=== PATIENT | male | born 1960 | race Caucasian/White ===

== ENCOUNTER 2016-08-01 09:53 | Emergency (ER) | payer BC ==
--- NOTE | 2016-08-01 10:18 | UC ---
Throat Pain/Nasal Peter HPI - HPI Summary HPI Summary: Pt presents with c/o sore throat that began on 07/29 and has worsened since onset. Pt also reports that he thinks that hi uvula has elongated and is non tender. Pt denies getting flu vaccine and reports that "he never gets the flu" . - History of Current Complaint Chief Complaint: UCGeneralIllness Stated Complaint: THROAT Time Seen by Provider: 08/01/16 10:15 Hx Obtained From: Patient Onset/Duration: Sudden Onset, Lasting Days - 3 days Severity: Mild Cough: Nonproductive Associated Signs & Symptoms: Positive: Dysphagia, Other - elongated uvula - Epiglottits Risk Factors Epiglottis Risk Factors: Negative - Allergies/Home Medications Allergies/Adverse Reactions: Allergies Allergy/AdvReac Type Severity Reaction Status Date / Time No Known Allergies Allergy Verified 08/01/16 09:58 Home Medications: Home Medications Losartan Potassium 25 mg PO DAILY 08/01/16 [History Confirmed 08/01/16] Venlafaxine EXT RELEASE CAP* [Effexor Xr CAP*] 225 mg PO DAILY 08/01/16 [ History Confirmed 08/01/16] PMH/Surg Hx/FS Hx/Imm Hx - Additional Past Medical History Additional PMH: Pt has HTN and took his Anti hypertensive ~ 20 minutes prior to arrival to clinic. Previously Healthy: Yes Cardiovascular History Of: Reports: Hypertension - Surgical History Surgical History: Yes Surgery Procedure, Year, and Place: prostate surgery 03/2014 - Family History Known Family History: Positive: Cardiac Disease - Social History Lives: With Family Alcohol Use: None Substance Use Type: None Smoking Status (MU): Never Smoked Tobacco Review of Systems Constitutional: Other - felt "warm" last night Skin: Negative Eyes: Negative ENT: Sore Throat, Other - elongated uvula Respiratory: Negative Cardiovascular: Negative Gastrointestinal: Negative Genitourinary: Negative Motor: Negative Neurovascular: Negative Musculoskeletal: Negative Neurological: Negative Psychological: Negative All Other Systems Reviewed And Are Negative: Yes Physical Exam Triage Information Reviewed: Yes Appearance: Well-Appearing Vital Signs: Initial Vital Signs Temp 97.7 F 08/01/16 09:59 Pulse 94 08/01/16 09:59 Resp 16 08/01/16 09:59 BP 154/99 08/01/16 09:59 Pulse Ox 96 08/01/16 09:59 Vital Signs Reviewed: Yes Eye Exam: Normal ENT: Positive: Pharynx normal, Other: - uvula, length, ~ 1- 2 cm, non erythematous, no edema, no abscess Neck exam: Normal Respiratory Exam: Normal Cardiovascular Exam: Normal Musculoskeletal Exam: Normal Neurological Exam: Normal Psychological Exam: Normal Skin Exam: Normal Throat Pain/Nasal Course/Dx - Course Course Of Treatment: I discussed with the pt the results of the rapid strep test being negative and the need to monitor his c/o regarding his uvula. Pt verbalized understanding and agreed to plan of care. Additonally, I spoke to the pt about his elevated BP at today's visit. Pt revealed that he had only taken his hypertensive medication 20 minutes frior to arrival and that he visits his PCP on a regular basis. - Differential Dx/Diagnosis Differential Diagnosis/HQI/PQRI: Influenza, Pharyngitis, Other Provider Diagnoses: sore throat. uvulitis. Elevated BP- with history of HTN on medication Discharge - Discharge Plan Condition: Stable Disposition: HOME Prescriptions: predniSONE TAB* [Deltasone TAB*] 30 mg PO DAILY #12 tab Patient Education Materials: Pharyngitis (ED), Uvulitis (ED) Referrals: [facility] [place] [facility]FERRAL [Outside] Additional Instructions: Please follow up with your PCP or return to clinic as needed. To help with your complaint of sore throat you should use Acetominophen and keep well hydrated with cold beverages. Additionally, it was noted that your blood pressure wal elevated at today's visit. Please follow up with your PCP regarding this as soon as possible and take your Blood pressure medication as directed.
[2016-08-01 11:03] VITALS: BP 146/92
== END 2016-08-01 11:03 | disposition home or self-care (01) ==
LOC: UCCORT 09:53
DX: K12.2 Cellulitis and abscess of mouth (principal); I10 Essential (primary) hypertension
CPT/HCPCS: 87651; 99202; G0463

== ENCOUNTER 2018-10-05 10:02 | Emergency (ER) | payer BC ==
[2018-10-05 10:24] VITALS: BP 160/98
--- NOTE | 2018-10-05 10:46 | ED ---
Throat Pain/Nasal Congestion - HPI Summary HPI Summary: 57 yr old male with the complaint of sinus pain, pressure post nasal drip, green sinus drainage from his nose. Onset over the past week. He denies fever or chills. He recently completed prednisone and antiviral regimen for left sided nj palsey. Symptoms of his sinus complaint are moderate in intensity. - History of Current Complaint Chief Complaint: UCGeneralIllness Time Seen by Provider: 10/05/18 10:30 - Allergies/Home Medications Allergies/Adverse Reactions: Allergies Allergy/AdvReac Type Severity Reaction Status Date / Time No Known Allergies Allergy Verified 10/05/18 10:25 PMH/Surg Hx/FS Hx/Imm Hx Cardiovascular History: Reports: Hx Hypertension - Cancer History Cancer Type, Location and Year: prostate cancer 2013 - Surgical History Surgery Procedure, Year, and Place: prostate surgery 03/2014 Infectious Disease History: No Infectious Disease History: Denies: Traveled Outside the [place] in Last 30 Days - Family History Known Family History: Positive: Cardiac Disease - Social History Alcohol Use: Rare Substance Use Type: Reports: None Smoking Status (MU): Never Smoked Tobacco Review of Systems Constitutional: Negative Positive: Nasal Discharge All Other Systems Reviewed And Are Negative: Yes Physical Exam Triage Information Reviewed: Yes Vital Signs On Initial Exam: Initial Vitals Temp Pulse Resp BP Pulse Ox 98.5 F 97 16 160/98 98 10/05/18 10:18 10/05/18 10:18 10/05/18 10:18 10/05/18 10:18 10/05/18 10:18 Vital Signs Reviewed: Yes Appearance: Positive: Well-Appearing, No Pain Distress Skin: Positive: Warm, Skin Color Reflects Adequate Perfusion Head/Face: Positive: Normal Head/Face Inspection Eyes: Positive: EOMI, FABRICIO ENT: Positive: Pharynx normal, Nasal congestion, TMs normal, Sinus tenderness - maxilla bilateral Neck: Positive: Nontender Respiratory/Lung Sounds: Positive: Clear to Auscultation, Breath Sounds Present Cardiovascular: Positive: RRR. Negative: Murmur Abdomen Description: Negative: Distended Neurological: Positive: Alert, Oriented to Person Place, Time, Normal Gait, Speech Normal. Negative: CN Intact II-III - left sided bells palsey weakness of nerve 7 all three branches on the left. Psychiatric: Positive: Normal Diagnostics - Vital Signs Vital Signs Temp Pulse Resp BP Pulse Ox 10/05/18 10:18 98.5 F 97 16 160/98 98 - Laboratory Lab Statement: Any lab studies that have been ordered have been reviewed, and results considered in the medical decision making process. EENT Course/Dx - Course Course Of Treatment: 57 yr old with sinusitis. Rx with augmentin - Diagnoses Provider Diagnoses: Sinusitis, Hypertension Discharge - Sign-Out/Discharge Documenting (check all that apply): Patient Departure All imaging exams completed and their final reports reviewed: No Studies - Discharge Plan Condition: Good Disposition: HOME Prescriptions: Amoxicillin/Clavulanate TAB* [Augmentin TAB 875*] 875 mg PO BID #20 tab Patient Education Materials: Sinusitis (ED), Hypertension (ED) Referrals: Tessie Walters NP [Primary Care Provider] - 2 Days - Billing Disposition and Condition Condition: GOOD Disposition: Home
== END 2018-10-05 10:57 | disposition home or self-care (01) ==
LOC: UCCORT 10:02
DX: J32.9 Chronic sinusitis, unspecified (principal); I10 Essential (primary) hypertension
CPT/HCPCS: 99212; G0463